=== PATIENT | female | born 1985 | race Caucasian/White ===

== ENCOUNTER 2022-02-22 07:25 | Emergency (ER) | payer SELFPAY ==
[~2022-02-22] VITALS: Ht 152.4 cm; Wt 49.7 kg
[2022-02-22 08:56] LABS: HCG, SERUM QUALITATIVE NEGATIVE (NEGATIVE)
[2022-02-22] MEDS ORDERED: PHENAZOPYRIDINE 100 MG TAB PO ONE (09:00)
[2022-02-22] MEDS ORDERED: NITROFURANTOIN (MACROBID) 100 MG CAP PO ONE (09:00)
[2022-02-22] MEDS ORDERED: NITR1CAP11 PO (09:32)
[2022-02-22] MEDS ORDERED: PHEN-372 PO (09:33)
[2022-02-22 10:16] VITALS: BP 99/64
== END 2022-02-22 10:18 | disposition home or self-care (01) ==
LOC: M ED 07:25
DX: N39.0 Urinary tract infection, site not specified (principal)